=== PATIENT | female | born 1945 | race Caucasian/White ===

== ENCOUNTER 2022-09-22 08:32 | Outpatient (CLI) | payer MEDICARE, SELFPAY ==
[2022-09-22 08:38] VITALS: BP 158/70; PULSE 86; RESP 16; O2SAT 94; BMI 38.0
[2022-09-22] MEDS: 0.9% NaCl Peripheral Flush Adult/Peds IV (09:14)
[2022-09-22] MEDS: Zoledronic Acid 5 MG 100 ML 300 MG IV (09:14)
[2022-09-22 09:38] VITALS: BP 146/61; PULSE 67
== END 2022-09-22 08:33 | disposition home or self-care (01) ==
LOC: MEDOUTP 08:33
PROVIDERS: PCP Nurse Practitioner Adult Health; Referring Provider Internal Medicine Endocrinology, Diabetes & Metabolism; Visit Provider Internal Medicine Endocrinology, Diabetes & Metabolism
DX: M81.0 Age-related osteoporosis without current pathological fracture (principal)
CPT/HCPCS: 96365; A4216; J3489

== ENCOUNTER 2023-09-25 10:28 | Outpatient (CLI) | payer MEDICARE, SELFPAY ==
[2023-09-25 10:51] VITALS: BP 132/61; PULSE 79; RESP 16; TEMP 36.1; O2SAT 93; BMI 39.0
[2023-09-25] MEDS: Zoledronic Acid 5 MG 100 ML 300 MG IV (11:08)
[2023-09-25] MEDS: 0.9% NaCl Peripheral Flush Adult/Peds IV (11:08)
[2023-09-25 11:36] VITALS: BP 122/58; PULSE 69; RESP 16; TEMP 36.1; O2SAT 95
== END 2023-09-25 23:59 | disposition home or self-care (01) ==
LOC: MEDOUTP 10:33
PROVIDERS: PCP Nurse Practitioner Adult Health; Referring Provider Internal Medicine Endocrinology, Diabetes & Metabolism; Visit Provider Internal Medicine Endocrinology, Diabetes & Metabolism
DX: M81.0 Age-related osteoporosis without current pathological fracture (principal)
CPT/HCPCS: 96365; A4216; J3489

== ENCOUNTER 2024-09-25 10:19 | Outpatient (CLI) | payer MEDICARE, SELFPAY ==
[2024-09-25 10:26] VITALS: BP 148/71; PULSE 64; RESP 16; TEMP 35.7; O2SAT 98
[2024-09-25] MEDS: 0.9% NaCl Peripheral Flush Adult IV (10:42)
[2024-09-25 11:07] VITALS: BP 144/65; PULSE 65
== END 2024-09-25 23:59 | disposition home or self-care (01) ==
LOC: MEDOUTP 10:21
PROVIDERS: PCP Nurse Practitioner Adult Health; Referring Provider Internal Medicine Endocrinology, Diabetes & Metabolism; Visit Provider Internal Medicine Endocrinology, Diabetes & Metabolism
DX: M81.0 Age-related osteoporosis without current pathological fracture (principal)
CPT/HCPCS: 96365; A4216; J3489